=== PATIENT | female | born 1985 | race Caucasian/White ===

== ENCOUNTER 2024-03-21 14:03 | Emergency (ER) | payer SELFPAY ==
[~2024-03-21] VITALS: Ht 144.8 cm; Wt 61.0 kg
[2024-03-21 14:22] VITALS: BP 139/81; PULSE 84; RESP 17; TEMP 98.8; O2SAT 98
[2024-03-21] MEDS ORDERED: BENZ200C4 PO (14:50)
[2024-03-21] MEDS ORDERED: CETI10SG1 PO (14:52)
[2024-03-21 16:01] LABS: FLU A ANTIGEN NEGATIVE (NEGATIVE); FLU B ANTIGEN NEGATIVE (NEGATIVE)
== END 2024-03-21 15:18 | disposition home or self-care (01) ==
LOC: MED 14:03
DX: J06.9 Acute upper respiratory infection, unspecified (principal); B97.89 Other viral agents as the cause of diseases classified elsewhere; I10 Essential (primary) hypertension; Z90.710 Acquired absence of both cervix and uterus; Z20.822 Contact with and (suspected) exposure to COVID-19; Z79.899 Other long term (current) drug therapy
CPT/HCPCS: 99283